=== PATIENT | male | born 1970 | race Caucasian/White ===

== ENCOUNTER 2021-07-17 13:39 | Emergency (ER) | payer BC, SELFPAY ==
--- NOTE | ~2021-07-17 | XR_ITS ---
EXAMINATION: XR tibia fibula RT 2V INDICATION: Right leg pain TECHNIQUE: Two views of the right tibia and fibula are obtained. COMPARISON: None available FINDINGS: There is soft tissue swelling in the medial aspect of the mid/distal leg. Bone alignment is normal. There is no fracture. Calcified atherosclerosis is noted. IMPRESSION: 1. Soft tissue swelling without acute osseous abnormality. Reviewed, dictated and finalized at location F.
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
[2021-07-17 13:48] VITALS: BP 157/100; PULSE 79; RESP 16; TEMP 36.3; O2SAT 100
[2021-07-17 13:56] VITALS: BP 157/100; PULSE 79; RESP 16; TEMP 36.3; O2SAT 100
== END 2021-07-17 14:19 | disposition home or self-care (01) ==
PROVIDERS: Emergency Provider Nurse Practitioner Family
DX: S80.11XA Contusion of right lower leg, initial encounter (principal); V29.3XXA Motorcycle rider (driver) (passenger) injured in unspecified nontraffic accident, initial encounter; E78.00 Pure hypercholesterolemia, unspecified
CPT/HCPCS: 73590; 99213; G0463

== ENCOUNTER 2025-01-13 07:48 | Outpatient (CLI) | payer BC, SELFPAY ==
--- NOTE | ~2025-01-13 | US_ITS ---
EXAMINATION: US abdomen complete, 01/13/2025 7:55 CDT HISTORY: Abd pain COMPARISON: None Technique: Mak-scale and color Doppler images were obtained. Findings: LIVER: Mild increased echogenicity of the liver. . GALLBLADDER/BILIARY: Unremarkable.No cholelithiais, wall thickening or pericholecystic fluid. No biliary dilatation. CBD 3 mm. [place] sign negative. PANCREAS: Unremarkable. SPLEEN: Unremarkable, no splenomegaly. KIDNEYS: Right Kidney: Right kidney 11.5 x 4.7 x 6.3 cm, normal. Left Kidney: Left kidney 12 x 6.4 x 5.7 cm, normal. AORTA: Normal caliber aorta. IVC: Unremarkable. FREE FLUID: None. Impression: No acute abnormality. Reviewed, dictated and finalized at location P. Impression: No acute abnormality.
== END 2025-01-13 07:49 | disposition home or self-care (01) ==
LOC: MICIMG 07:49
PROVIDERS: PCP Nurse Practitioner Family; Visit Provider Nurse Practitioner Family
DX: R10.9 Unspecified abdominal pain (principal); R19.7 Diarrhea, unspecified
CPT/HCPCS: 76700

== ENCOUNTER 2025-03-13 16:39 | Emergency (ER) | payer BC, SELFPAY ==
--- NOTE | ~2025-03-13 | XR_ITS ---
XR knee RT min 4V INDICATION: pain COMPARISON: None FINDINGS: 4 views of the right knee demonstrate no acute fracture or dislocation. Large suprapatellar joint effusion is noted. Degenerative changes are present. There are enthesophyte at the quadriceps tendon attachment. IMPRESSION: No acute fracture or dislocation. Reviewed, dictated and finalized at location S. TMENT GROUNDSKEEPER
[2025-03-13 16:51] VITALS: BP 141/75; PULSE 83; RESP 16; TEMP 36.7; O2SAT 98
--- NOTE | 2025-03-13 16:53 | ED_ITS ---
HPI - Extremity Injury (Lower) General Chief Complaint: Extremity Injury, Lower Stated Complaint: Right Knee Pain Time Seen by Provider: 03/13/25 16:54 Source: patient, RN notes reviewed and old records reviewed Mode of arrival: ambulatory Limitations: no limitations History of Present Illness HPI Narrative: 54 year old male presents to [facility] care with complaints of right knee pain for the past week with increased pain with ambulation since twisting his right knee one week ago. Patient reports that knee was feeling better past 2 days till he put on shoes today and felt pop in his right knee. Patient reports that he has had increased difficulty with ambulation and increased pain to his right knee today. MD complaint: knee injury Onset (ago): week(s) (1) Injury: Right: knee (twisted knee) Severity scale (1-10): 4 Treatments prior to arrival: cold therapy and other (Tylenol) Related Data Home Medications ?Medication ?Instructions ?Recorded ?Confirmed ?Last Taken ?Type atorvastatin 20 mg tablet 07/17/21 Unknown History finasteride 5 mg tablet mg 07/17/21 Unknown History Allergies Allergy/AdvReac Type Severity Reaction Status Date / Time Penicillins Allergy Intermediate hives Verified 03/13/25 16:41 Review of Systems Review of Systems: CONSTITUTIONAL: Denies fever, chills, or sweats. CARDIOVASCULAR: Denies chest pain, palpitations, or edema. RESPIRATORY: Denies cough or dyspnea. SKIN: Denies rash or itching. Denies laceration or abrasions MUSCULOSKELETAL: Reports right knee pain for one week duration after twisting knee, was getting better till he was putting shoe on today and right knee popped. Patient having increased pain to his right knee with fullness sensation posterior knee and increased pain with ambulation and weight bearing. Patient has been applying ice to his right knee and taking Tylenol.Full ROM noted NEUROLOGIC: Denies numbness, or weakness. All systems reviewed & are unremarkable except as noted in HPI and below PMFSH Past Medical History Medical History (Updated 03/13/25 @ 19:50 by Thu Conner APRN) BPH (benign prostatic hyperplasia) High blood cholesterol Family History Family History Father Family history of lung cancer Hypertension Family history of cardiovascular disease Family history of chronic obstructive pulmonary disease Mother Family history of lung cancer Hypertension Family history of cardiovascular disease Other Diabetes mellitus Social History Social History Smoking status: Never smoker Alcohol intake: never Comments At time of signature, agree with nursing past medical, surgical, social and family history. There is no relevant family history pertinent to the presenting complaint Exam Narrative: GENERAL: Well-appearing, well-nourished, and in no acute distress. HEAD: Normocephalic, atraumatic. EYES: PERRLA and EOMI. ENT: Nares clear, no rhinorrhea or epistaxis. Mucous membranes moist. NECK: Supple. no lymphadenopathy CHEST: Clear to auscultation. No respiratory distress.SAO2 98% on room air HEART: Regular rate and rhythm. No murmur heard. Normal peripheral pulses. ABDOMEN: Soft, nontender, nondistended, normal active bowel sounds. EXTREMITIES edema to tissue above knee,tightness to posterior right knee.. Pain to right knee increased today with pop noted to knee with fullness sensation posterior knee and increased pain to right knee with any weight bearing and ambulation. Patient able to bend knee without difficulty but has increased pain and limping pedal pulse palpable SKIN: Warm, dry, no rash. NEURO: No focal deficits. Alert and oriented x3. Course Course Level of Care: Express Care Visit Vital Signs Vital signs: Vital Signs Temperature 36.7 C 03/13/25 16:51 Pulse Rate 83 03/13/25 16:51 Respiratory Rate 16 03/13/25 16:51 Blood Pressure 141/75 H 03/13/25 16:51 Pulse Oximetry 98 03/13/25 16:51 Oxygen Delivery Room Air 03/13/25 16:51 Temperature 36.7 C 03/13/25 16:51 Pulse Rate 83 03/13/25 16:51 Respiratory Rate 16 03/13/25 16:51 Blood Pressure 141/75 H 03/13/25 16:51 Pulse Oximetry 98 03/13/25 16:51 Oxygen Delivery Room Air 03/13/25 16:51 reviewed [facility] MDM Narrative Medical decision making narrative: Patient reports increased pain today to his right knee after feeling popping sensation when he put his shoes on. Patient reports that he initially twisted his knee one week ago and pain had decreased till pop noted today. Patient fitted for crutches advised ice elevation Tylenol and Ibuprofen and rest to his right knee with follow up per ortho salon receptionist, recommended neoprene sleeve to his right knee for compression, Patient received Anticipatory guidance and reviewed reasons for him to seek care in the ED. Differential Diagnosis Differential Diagnosis: Differential diagnostic considerations for lower extremity injury include ankle sprain/strain, acute internal derangement of knee, fracture of femur, fracture of hip, puncture wound of foot, fracture of toe, fracture of ankle, tendon rupture (achilles/patellar/quadriceps). Imaging Data Attestation: I personally reviewed and interpreted this imaging study as follows: My impression: no acute fracture or dislocation, degenerative changes present large suprapatellar joint effusion is noted and enthesophyte at the quadriceps tendon attachment Radiologist's impression: ITS Impressions Knee X-Ray 03/13/25 17:23 IMPRESSION: No acute fracture or dislocation. [address] [place] [address] XRay Report Signed Patient: Ovidio Bright Jr. : 1970 MR#: [id number] Age: 54 Acct:[id number] Loc: [facility] ADM Date: 03/13/[address]: Ordering Physician: Thu Conner APRN Date of Service: 03/13/25 Procedure(s): XR knee RT min 4V Accession Number(s): [id number] cc: Thu Conner APRN; Juma, Юлия Ramirez NP~ XR knee RT min 4V INDICATION: pain COMPARISON: None FINDINGS: 4 views of the right knee demonstrate no acute fracture or dislocation. Large suprapatellar joint effusion is noted. Degenerative changes are present. There are enthesophyte at the quadriceps tendon attachment. IMPRESSION: No acute fracture or dislocation. Reviewed, dictated and finalized at location S. K OR BLOCK MAKER Please be advised this is a medical document. It is intended for [id number] communication. It is written in medical language and may contain unfamiliar abbreviations or verbiage. Medical documents are intended to carry relevant information, facts as evident, and the clinical opinion of the practitioner at the time of the encounter. This report may have been done utilizing a voice recognition system. Attempts have been made to correct errors. However, there may be uncorrected grammatical, spelling, and recognition errors present. The file time of this note does not necessarily represent the time of service. Dictated By: aAmir Roe MD 03/13/25 1723 Signed By: <Electronically signed by Aamir Roe MD in OV> Critical Care Time Critical Care Time Critical Care Time: No Discharge Plan Discharge Clinical Impression: Suprapatellar swelling of knee joint Degenerative arthritis of right knee Qualifiers: Osteoarthritis type: unspecified Qualified Code(s): M17.11 - Unilateral primary osteoarthritis, right knee Right knee pain Qualifiers: Chronicity: acute Qualified Code(s): M25.561 - Pain in right knee Patient Disposition: Home Condition: Stable Instructions: Antibiotic Form, Swollen Knee Joint (ED), Knee Pain (ED) Additional Instructions: Elastic wrap or orthopedic splint as directed for comfort for the next 5-7 days Crutches as directed if needed set up for crutches and crutch training in sruction Tylenol for lesser pain Ibuprofen regularly for the next 2-3 days for the inflammation Follow-up with orthopedic surgeon Dr. Falcon is orthopedic on-call call his office on Sunday at [phone] to set up appointment Follow-up with PCP if further problems or concerns Ice to the area 20-30 minutes 4-6 times a day Elevate above heart If your symptoms persist, change or worsen significantly before you can contact your personal physician then please, without delay, go to the emergency department for further evaluation. Follow-up with PCP in 7-10 days or sooner if needed Follow up with PCP soon in regards to your blood pressure which is elevated above threshold for referral. Blood pressure above 120/80 may indicate pre- hypertension. 141/75 Patient Language: Setswana Prescriptions: No Action atorvastatin 20 mg tablet finasteride 5 mg tablet Follow-up/Referrals: Tank Falcon MD [Physician, Orthopedics] - 3 Days Referral Note: no acute fracture or dislocation Patient reports twisted right knee one week ago and today felt pop in his right knee with increased pain today, Large suprapatellar joint effusion and degenerative changes enthesophyte at quadriceps tendon attachment Clinical Impression: Suprapatellar swelling of knee joint; Right knee pain; Degenerative arthritis of right knee Juma,Юлия Ramirez CORRECTIONAL COUNSELOR/CASE MANAGER [Primary Care Provider, Unknown] Stand Alone Forms: Work/School Release IP Time of Disposition: 17:49 Quality [place] Coma Scale Eyes: Open Verbal: Oriented and Alert Motor: Follows Commands Shon Coma Total Score: 15
== END 2025-03-13 18:00 | disposition home or self-care (01) ==
PROVIDERS: Emergency Provider Registered Nurse; PCP Nurse Practitioner Family
DX: M25.461 Effusion, right knee (principal); M17.11 Unilateral primary osteoarthritis, right knee; M25.561 Pain in right knee; N40.0 Benign prostatic hyperplasia without lower urinary tract symptoms; E78.00 Pure hypercholesterolemia, unspecified
CPT/HCPCS: 73564; 99213; G0463